=== PATIENT | female | born 1985 | race Caucasian/White ===

== ENCOUNTER 2016-07-29 13:00 | Emergency (ER) | payer OTHER ==
[2016-07-29 14:20] LABS: BASO % 0.3 % (0.0-1.0); EOS # 0.2 K/mm3 (0.0-0.50); EOS % 1.8 % (0.0-3.0); LARGE UNSTAINED CELL # 0.1 K/mm3 (0.0-0.4); LARGE UNSTAINED CELL % 1.5 % (0.0-4.0); LYMPH # 1.6 K/mm3 (1.5-6.5); LYMPH % 20.4 % (24.0-44.0); MEAN CORPUSCULAR HEMOGLOBIN 28.9 pg (27.0-33.0); MEAN CORPUSCULAR VOLUME 82.5 fl (80.0-96.0); MONO # 0.3 K/mm3 (0.0-0.8); MONO % 4.2 % (0.0-5.0); NEUTROPHILS # 5.7 K/mm3 (1.8-7.7); NEUTROPHILS % 71.8 % (36.0-66.0); PLATELET COUNT, AUTOMATED 258 k/mm3 (150-450); RED CELL DISTRIBUTION WIDTH 13.1 % (11.5-14.5); WHITE BLOOD COUNT 7.9 K/mm3 (4.0-10.0)
--- NOTE | 2016-07-29 14:46 | REP ---
First trimester obstetrical ultrasound for vaginal bleeding, emergency room request: Transabdominal, endovaginal and M-mode Doppler are performed. There is an intrauterine gestational sac with a pole. The heart rate is 171 beats per minute. The pole crown-rump length is 3.7 cm corresponding 10 weeks 4 days gestational age. The NAKUL is 2016. There is no subchorionic hematoma. The maternal adnexa and cul-de-sac are unremarkable. Signed by Tomás Hill MD 07/29/2016 02:37 P
[2016-07-29 14:49] LABS: ANION GAP 12 MEQ/L (8-16); BLOOD UREA NITROGEN 8 MG/DL (7-18); CALCIUM LEVEL 9.1 MG/DL (8.5-10.1); CARBON DIOXIDE LEVEL 24 MEQ/L (21-32); CHLORIDE LEVEL 104 MEQ/L (98-107); CREATININE FOR GFR 0.42 MG/DL (0.55-1.02); GLOMERULAR FILTRATION RATE > 60.0 (>60); GLUCOSE, FASTING 85 MG/DL (70-105); HCG, SERUM QUANTITATIVE 71041 MIU/ML; POTASSIUM SERUM 3.8 MEQ/L (3.5-5.1); SODIUM LEVEL 140 MEQ/L (136-145)
--- NOTE | 2016-07-29 15:21 | EDDOCDS ---
Physician Documentation [facility] Name: Muriel Manning Age: 30 yrs Sex: Female : 1985 Arrival Date: 07/29/2016 Time: 13:00 Bed I4 / M4 Private MD: Nadir Felton [facility] Disposition: 07/29/16 15:09 Discharged to Home/Self Care. Impression: Other abnormal uterine and vaginal bleeding - IN EARLY , 10 weeks gestation of - 10w4d ON U.S.. - Condition is Stable. - Discharge Instructions: First Trimester of . - Medication Reconciliation, Local Pharmacy Hours form. - Follow up: Emergency Department; When: As needed; Reason: Worsening of conditions. Follow up: Adal Santizo MD; When: Call to arrange an appointment; Reason: Wound/Symptom Recheck, Recheck today's complaints, Continuance of care, To establish care. - Problem is new. - Symptoms are unchanged. - Notes: PLEASE CALL DR[facility] TODAY OR MONDAY TO SCHEDULE AN APPOINTMENT FOR NEXT WEEK, FOR FOLLOW UP. LET THEM KNOW YOU WERE SEEN IN THE ER TODAY AND HAD A NORMAL ULTRASOUND SHOWING A 10 WEEK, 4 DAY OLD INTRAUTERINE . ANY WORSENING SYMPTOMS, PLEASE RETURN TO THE ER. Historical: - Allergies: no known allergies; - Home Meds: 1. Vitamin Oral tab once daily 2. metformin 500 mg Oral Tb24 1 tab once daily (Last dose: 07/29/2016 07:00) 3. Zoloft 50 mg Oral tab 1 tab once daily (Last dose: 07/28/2016 21:00) - PMHx: PCOS; Depression; miscarriages; - PSHx: breast reduction; - Social history: Smoking status: Patient states was never smoker of tobacco. Patient/guardian denies using alcohol, street drugs, No barriers to communication noted, The patient speaks fluent Malay, Speaks appropriately for age. - Family history: Not pertinent. - : The pt / caregiver states he / she is not on anticoagulants. Home medication list is obtained from the patient. - Exposure Risk Screening:: None identified. 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 8 in. (172.72 cm) (R); Pain 4/10; 13:02 Body Mass Index 32.69 (97.52 kg, 172.72 cm) gr2 MDM: 13:12 UCG by Nursing ordered. dt4 13:12 Urine Dip ordered. dt4 13:47 Set up pelvic ordered. dt4 13:47 Undress patient appropriately for examination ordered. dt4 13:47 IV Saline Lock ordered. dt4 13:48 GC & Chlamydia Amplification Ordered. EDMS 13:48 CBC with Diff Ordered. EDMS 13:48 Basic Metabolic Profile Ordered. EDMS 13:48 Hcg, Serum Quantitative Ordered. EDMS 13:48 Wet Prep Ordered. EDMS 13:48 Urine Culture Ordered. EDMS 13:48 US 1st trimester Ordered. EDMS 13:48 Type & Screen Ordered. EDMS 14:17 Financial registration complete. lg 14:28 TRANSVAGINAL US Ordered. EDMS 14:39 [facility] Payment Agreement was scanned into [employer] and attached to record. Point of Care Testing: Urine : 13:35 hCG Reading: Positive; Control Reading: Positive; jjr Urine Dip: 13:35 pH: 5; ; Specific [place]: 1.015; Ketones: Negative; Glucose: Negative; Protein: Trace; jjr Leukocytes: Trace; Nitrite: Negative ; Blood: Non Hemolyzed Trace; Bilirubin: Negative ; Urobilinogen: Normal Ranges: Signatures: Dispatcher [employer] EDMS Lor Bautista RN RN srm Ganter, LoriLee, Reg Reg lg Zaria Barrera RN RN ttb Tschudi, Diane, PA-C PA-C dt4 The chart was reviewed and I authenticate all verbal orders and agree with the evaluation and treatment provided.Attachments: 14:39 [facility] [place] [facility] [place] Agreement lg MTDD
--- NOTE | 2016-07-29 15:21 | EDDOCDS ---
Nurse's Notes [facility] Name: Muriel Manning Age: 30 yrs Sex: Female : 1985 Arrival Date: 07/29/2016 Time: 13:00 Bed I4 / M4 Private MD: Nadir Felton [facility] Diagnosis: Other abnormal uterine and vaginal bleeding-IN EARLY ;10 weeks gestation of -10w4d ON U.S. Presentation: 07/29 13:08 Presenting complaint: Patient states: "sharp pains in my ovaries" accompanied by lower ttb back pain x3 days. Vag bleeding today, intermittent. Risk factors: The patient reports no loss of conciousness prior to arrival. This patient has not had a hysterectomy. This patient has not begun menopause. Adult Sepsis Screening: The patient does not have new or worsening altered mentation. Patient's respiratory rate is less than 22. Systolic blood pressure is greater than 100. Patient has a qSOFA score of 0- Negative Sepsis Screen. Suicide/Homicide risk assessment- the patient denies having any suicidal and/or homicidal ideations and does not present with any other emotional, behavioral or mental health complaints. Status: The patient is a dependent. Transition of care: patient was not received from another setting of care. 13:08 Acuity: SHASTA Level 3 ttb 13:08 Method Of Arrival: Walkin/Carried/Asstd ttb Triage Assessment: 13:11 General: Appears in no apparent distress, well nourished, well groomed, Behavior is ttb anxious, appropriate for age, cooperative, pleasant. Pain: Location: lower back, lower abd. 2/10. HIV screening NA for this visit Offered previously. Neurological: Level of Consciousness is awake, alert. Respiratory: No deficits noted. Airway is patent. : Reports vaginal bleeding that is bright red. Derm: Skin is normal. INK BLENDER: 13:11 4, Full Term 1, Premature 0, 2, Living 1, LMP 05/19/2016, srm Verified, EDC 02/23/2017, Gestational age from LMP: 10 weeks 1 day Historical: - Allergies: no known allergies; - Home Meds: 1. Vitamin Oral tab once daily 2. metformin 500 mg Oral Tb24 1 tab once daily (Last dose: 07/29/2016 07:00) 3. Zoloft 50 mg Oral tab 1 tab once daily (Last dose: 07/28/2016 21:00) - PMHx: PCOS; Depression; miscarriages; - PSHx: breast reduction; - Social history: Smoking status: Patient states was never smoker of tobacco. Patient/guardian denies using alcohol, street drugs, No barriers to communication noted, The patient speaks fluent Dominican, Speaks appropriately for age. - Family history: Not pertinent. - : The pt / caregiver states he / she is not on anticoagulants. Home medication list is obtained from the patient. - Exposure Risk Screening:: None identified. Screenin:13 Screening information is obtained from the patient. Fall risk: No risks identified. srm Assistance ADL's: requires no assistance with activities of daily living. Abuse/DV Screen: The patient / caregiver reports he/she is: not in a situation that causes fear, pain or injury. Nutritional screening: No deficits noted. Advance Directives: There is no active DNR order. home support is adequate. Assessment: 14:13 General: Appears in no apparent distress, Behavior is appropriate for age, cooperative. srm : Reports. 14:13 : Reports vaginal bleeding that is. srm 15:19 Reassessment: Patient appears in no apparent distress at this time. Patient states srm feeling better. Patient states symptoms have improved. Pain: Pain currently is 1 out of 10 on a pain scale. Quality of pain is described as occasional cramping. Cardiovascular: No deficits noted. Respiratory: No deficits noted. GI: Reports occ cramping. Vital Signs: 13:02 BP 123 / 77; Pulse 92; Resp 18 S; Temp 98.2(O); Pulse Ox 100% on R/A; Weight 97.52 kg gr2 (R); Height 5 ft. 8 in. (172.72 cm) (R); Pain 4/10; 13:02 Body Mass Index 32.69 (97.52 kg, 172.72 cm) 2 Vitals: 13:02 Log In Time: July 29, 2016 at 13:02. gr2 ED Course: 13:01 Patient visited by Marisela Briceno. gr2 13:01 Patient moved to Waiting gr2 13:02 [facility] gr2 13:04 Patient visited by Marisela Briceno. gr2 13:04 Patient moved to Pre RCE gr2 13:09 Triage Initiated ttb 13:12 Patient visited by Zaria Barrera, FREDY. ttb 13:20 Patient moved to Triage 2 ttb 13:21 Jillian Garcia PA-C [facility]. dt4 13:21 Steph Julien MD is Attending Physician. dt4 13:21 Patient visited by Jillian Garcia PA-C. dt4 13:36 Patient visited by Lisandra Briceno RN. jjr 13:40 Patient moved to I4 / M4 ttb 13:59 Assist provider with pelvic exam: Set up pelvic tray. Specimens sent to lab. jlf 14:02 Patient visited by Albino Izquierdo PCA. jlf 14:02 Wet Prep Sent. jlf 14:02 GC & Chlamydia Amplification Sent. jlf 14:12 Patient moved to Ultrasound am17 14:12 The patient / caregiver is instructed regarding the plan of care and ED course. srm Accompanied by daughter, Patient has correct armband on for positive identification. Placed in gown. Bed in low position. Call light in reach. 14:12 Hcg, Serum Quantitative Sent. srm 14:12 Type & Screen Sent. srm 14:12 Basic Metabolic Profile Sent. srm 14:12 CBC with Diff Sent. srm 14:12 Urine Culture Sent. srm 14:12 Inserted saline lock: 20 gauge in left antecubital area and blood collected. srm 14:13 Patient visited by Lor Bautista RN. srm 14:27 Patient moved to I4 / M4 am17 14:39 Patient name changed from Muriel\\S\\\\S\\Manning\\S\\ to Muriel\\S\\Anila\\S\\Manning. EDMS 14:39 [facility] [place] was [place] into [employer] and attached to record. lg 14:42 Patient visited by Albino Izquierdo PCA. jlf 15:06 Patient visited by Jillian Garcia PA-C. dt4 15:07 Adal Santizo MD is Referral Physician. dt4 15:19 Discontinued lock intact, bleeding controlled, pressure dressing applied, No srm redness/swelling at site. 15:20 US 1st trimester Returned. EDMS Point of Care Testing: Urine : 13:35 hCG Reading: Positive; Control Reading: Positive; jjr Urine Dip: 13:35 pH: 5; ; Specific [place]: 1.015; Ketones: Negative; Glucose: Negative; Protein: Trace; jjr Leukocytes: Trace; Nitrite: Negative ; Blood: Non Hemolyzed Trace; Bilirubin: Negative ; Urobilinogen: Normal Ranges: Order Results: Lab Order: Wet Prep; SPEC'M 07/29/16 14:00 Test: WET PREP; Value: WET PREP RESULT; Status: F Test: WET PREP; Value: MANY EPITHELIAL CELLS PRESENT; Status: F Test: WET PREP; Value: MODERATE WBC; Status: F Test: WET PREP; Value: MANY LONG RODS PRESENT; Status: F Lab Order: CBC with Diff; SPEC'M 07/29/16 14:07 Test: WHITE BLOOD COUNT; Value: 7.9; Range: 4.0-10.0; Units: K/mm3; Status: F Test: RED BLOOD COUNT; Value: 4.57; Range: 4.00-5.40; Units: M/mm3; Status: F Test: HEMOGLOBIN; Value: 13.2; Range: 12.0-16.0; Units: g/dl; Status: F Test: HEMATOCRIT; Value: 37.7; Range: 36.0-47.0; Units: %; Status: F Test: MEAN CORPUSCULAR VOLUME; Value: 82.5; Range: 80.0-96.0; Units: fl; Status: F Test: MEAN CORPUSCULAR HEMOGLOBIN; Value: 28.9; Range: 27.0-33.0; Units: pg; Status: F Test: MEAN CORPUSCULAR HGB CONC; Value: 35.0; Range: 32.0-36.5; Units: g/dl; Status: F Test: RED CELL DISTRIBUTION WIDTH; Value: 13.1; Range: 11.5-14.5; Units: %; Status: F Test: PLATELET COUNT, AUTOMATED; Value: 258; Range: 150-450; Units: k/mm3; Status: F Test: NEUTROPHILS %; Value: 71.8; Range: 36.0-66.0; Abnormal: Above high normal; Units: %; Status: F Test: LYMPH %; Value: 20.4; Range: 24.0-44.0; Abnormal: Below low normal; Units: %; Status: F Test: MONO %; Value: 4.2; Range: 0.0-5.0; Units: %; Status: F Test: EOS %; Value: 1.8; Range: 0.0-3.0; Units: %; Status: F Test: BASO %; Value: 0.3; Range: 0.0-1.0; Units: %; Status: F Test: LARGE UNSTAINED CELL %; Value: 1.5; Range: 0.0-4.0; Units: %; Status: F Test: NEUTROPHILS #; Value: 5.7; Range: 1.8-7.7; Units: K/mm3; Status: F Test: LYMPH #; Value: 1.6; Range: 1.5-6.5; Units: K/mm3; Status: F Test: MONO #; Value: 0.3; Range: 0.0-0.8; Units: K/mm3; Status: F Test: EOS #; Value: 0.2; Range: 0.0-0.50; Units: K/mm3; Status: F Test: BASO #; Value: 0.0; Range: 0.0-0.2; Units: K/mm3; Status: F Test: LARGE UNSTAINED CELL #; Value: 0.1; Range: 0.0-0.4; Units: K/mm3; Status: F Lab Order: Basic Metabolic Profile; SPEC'M 07/29/16 14:07 Test: GLUCOSE, FASTING; Value: 85; Range: 70-105; Units: MG/DL; Status: F Test: BLOOD UREA NITROGEN; Value: 8; Range: 7-18; Units: MG/DL; Status: F Test: CREATININE FOR GFR; Value: 0.42; Range: 0.55-1.02; Abnormal: Below low normal; Units: MG/DL; Status: F Test: GLOMERULAR FILTRATION RATE; Value: > 60.0; Range: >60; Status: F Test: SODIUM LEVEL; Value: 140; Range: 136-145; Units: MEQ/L; Status: F Test: POTASSIUM SERUM; Value: 3.8; Range: 3.5-5.1; Units: MEQ/L; Status: F Test: CHLORIDE LEVEL; Value: 104; Range: 98-107; Units: MEQ/L; Status: F Test: CARBON DIOXIDE LEVEL; Value: 24; Range: 21-32; Units: MEQ/L; Status: F Test: ANION GAP; Value: 12; Range: 8-16; Units: MEQ/L; Status: F Test: CALCIUM LEVEL; Value: 9.1; Range: 8.5-10.1; Units: MG/DL; Status: F Test Note: ; Units are mL/min/1.73 m2 Chronic Kidney Disease Staging per NKF: Stage I & II GFR >=60 Normal to Mildly Decreased Stage III GFR 30-59 Moderately Decreased Stage IV GFR 15-29 Severely Decreased Stage V GFR <15 Very Little GFR Left ESRD GFR <15 on JAVA MANAGER Lab Order: Type & Screen; SPEC07/29/16 14:07 Test: BLOOD TYPE; Value: A POS; Status: F Test: AB SCREEN (INDIRECT DIALLO)VIS; Value: NEGATIVE; Status: F Lab Order: Hcg, Serum Quantitative; SPEC'07/29/16 14:07 Test: HCG, SERUM QUANTITATIVE; Value: 85119; Units: MIU/ML; Status: F Test Note: ; GESTATIONAL AGE APPROXIMATE HCG RANGE (MIU/ML) 0.2-1 WEEK 5-50 1-2 WEEKS 50-500 2-3 WEEKS 100-5,000 3-4 WEEKS 500-10,000 4-5 WEEKS 1,000-50,000 5-6 WEEKS 10,000-100,000 6-8 WEEKS 15,000-200,000 2-3 MONTHS 10,000-100,000 NON FEMALES LESS THAN 3.0 Patient samples may contain human heterophilic antibodies that could react with immunoassays to give falsely elevated or depressed results. This assay has been designed to minimize interference from heterophilic antibodies. Elevated hCG levels have also been associated with trophoblastic disease and nontrophoblastic neoplasms. The possibility of having these diseases should be considered before a diagnosis of is made. This test is not intended for use as a surrogate marker for aiding in the diagnosis or monitoring the treatment of cancer patients. Siemens [employer] methodology. Radiology Order: US 1st trimester Test: US 1st trimester REASON FOR EXAMINATION: pos preg, vag bleeding/pelvic pain; First trimester obstetrical ultrasound for vaginal bleeding, emergency room; request:; ; Transabdominal, endovaginal and M-mode Doppler are performed.; ; There is an intrauterine gestational sac with a pole.; ; The heart rate is 171 beats per minute.; ; The pole crown-rump length is 3.7 cm corresponding 10 weeks 4 days; gestational age. The NAKUL is 2016.; ; There is no subchorionic hematoma.; ; The maternal adnexa and cul-de-sac are unremarkable.; ; ; Signed by; Tomás Hill MD 07/29/2016 02:37 P; Outcome: 15:09 Discharge ordered by Provider. dt4 15:19 Discharge Assessment: Patient awake, alert and oriented x 3. No cognitive and/or srm functional deficits noted. Patient verbalized understanding of disposition instructions. patient administered narcotics - no. The following High Risk Discharge criteria are identified: None. Discharged to home ambulatory, with family. Condition: stable. Discharge instructions given to patient, Instructed on discharge instructions, follow up and referral plans. Demonstrated understanding of instructions, Pt was receptive of discharge instructions/ teaching. Ultrasound Study completed. Property sent home with patient. 15:20 Patient left the ED. srm Signatures: Dispatcher [employer] EDMS Lor Bautista RN RN Randy Woodward Reg Reg lg Raymond, Jessica, Zaria Galloway RN, RN RN ttb Marisela Briceno gr2 Albino Izquierdo, [employer] jlMuriel Martines am17 Jillian Garcia PA-C PALissettC dt4 Corrections: (The following items were deleted from the chart) 14:14 13:11 4, Full Term 1, Premature 0, 2, Living 1, LMP 05/19/2016 ttb srm MTDD
--- NOTE | 2016-07-31 16:21 | EDDOCDS ---
Nurse's Notes [facility] Name: Muriel Manning Age: 30 yrs Sex: Female : 1985 Arrival Date: 07/29/2016 Time: 13:00 Bed I4 / M4 Private MD: Nadir Felton [facility] Diagnosis: Other abnormal uterine and vaginal bleeding-IN EARLY ;10 weeks gestation of -10w4d ON U.S. Presentation: 07/29 13:08 Presenting complaint: Patient states: "sharp pains in my ovaries" accompanied by lower ttb back pain x3 days. Vag bleeding today, intermittent. Risk factors: The patient reports no loss of conciousness prior to arrival. This patient has not had a hysterectomy. This patient has not begun menopause. Adult Sepsis Screening: The patient does not have new or worsening altered mentation. Patient's respiratory rate is less than 22. Systolic blood pressure is greater than 100. Patient has a qSOFA score of 0- Negative Sepsis Screen. Suicide/Homicide risk assessment- the patient denies having any suicidal and/or homicidal ideations and does not present with any other emotional, behavioral or mental health complaints. Status: The patient is a dependent. Transition of care: patient was not received from another setting of care. 13:08 Acuity: SHASTA Level 3 ttb 13:08 Method Of Arrival: Walkin/Carried/Asstd ttb Triage Assessment: 13:11 General: Appears in no apparent distress, well nourished, well groomed, Behavior is ttb anxious, appropriate for age, cooperative, pleasant. Pain: Location: lower back, lower abd. 2/10. HIV screening NA for this visit Offered previously. Neurological: Level of Consciousness is awake, alert. Respiratory: No deficits noted. Airway is patent. : Reports vaginal bleeding that is bright red. Derm: Skin is normal. DENT REMOVER: 13:11 4, Full Term 1, Premature 0, 2, Living 1, LMP 05/19/2016, srm Verified, EDC 02/23/2017, Gestational age from LMP: 10 weeks 1 day Historical: - Allergies: no known allergies; - Home Meds: 1. Vitamin Oral tab once daily 2. metformin 500 mg Oral Tb24 1 tab once daily (Last dose: 07/29/2016 07:00) 3. Zoloft 50 mg Oral tab 1 tab once daily (Last dose: 07/28/2016 21:00) - PMHx: PCOS; Depression; miscarriages; - PSHx: breast reduction; - Social history: Smoking status: Patient states was never smoker of tobacco. Patient/guardian denies using alcohol, street drugs, No barriers to communication noted, The patient speaks fluent Peruvian, Speaks appropriately for age. - Family history: Not pertinent. - : The pt / caregiver states he / she is not on anticoagulants. Home medication list is obtained from the patient. - Exposure Risk Screening:: None identified. Screenin:13 Screening information is obtained from the patient. Fall risk: No risks identified. srm Assistance ADL's: requires no assistance with activities of daily living. Abuse/DV Screen: The patient / caregiver reports he/she is: not in a situation that causes fear, pain or injury. Nutritional screening: No deficits noted. Advance Directives: There is no active DNR order. home support is adequate. Assessment: 14:13 General: Appears in no apparent distress, Behavior is appropriate for age, cooperative. srm : Reports. 14:13 : Reports vaginal bleeding that is. srm 15:19 Reassessment: Patient appears in no apparent distress at this time. Patient states srm feeling better. Patient states symptoms have improved. Pain: Pain currently is 1 out of 10 on a pain scale. Quality of pain is described as occasional cramping. Cardiovascular: No deficits noted. Respiratory: No deficits noted. GI: Reports occ cramping. Vital Signs: 13:02 BP 123 / 77; Pulse 92; Resp 18 S; Temp 98.2(O); Pulse Ox 100% on R/A; Weight 97.52 kg gr2 (R); Height 5 ft. 8 in. (172.72 cm) (R); Pain 4/10; 13:02 Body Mass Index 32.69 (97.52 kg, 172.72 cm) 2 Vitals: 13:02 Log In Time: July 29, 2016 at 13:02. gr2 ED Course: 13:01 Patient visited by Marisela Briceno. gr2 13:01 Patient moved to Waiting gr2 13:02 [facility] gr2 13:04 Patient visited by Marisela Briceno. gr2 13:04 Patient moved to Pre RCE gr2 13:09 Triage Initiated ttb 13:12 Patient visited by Zaria Barrera, FREDY. ttb 13:20 Patient moved to Triage 2 ttb 13:21 [facility] dt4 13:21 Steph Julien MD is Attending Physician. dt4 13:21 Patient visited by Jillian Garcia PA-C. dt4 13:36 Patient visited by Lisandra Briceno, FREDY. jjr 13:40 Patient moved to I4 / M4 ttb 13:59 Assist provider with pelvic exam: Set up pelvic tray. Specimens sent to lab. jlf 14:02 Patient visited by Albino Izquierdo PCA. jlf 14:02 Wet Prep Sent. jlf 14:02 GC & Chlamydia Amplification Sent. jlf 14:12 Patient moved to Ultrasound am17 14:12 The patient / caregiver is instructed regarding the plan of care and ED course. srm Accompanied by daughter, Patient has correct armband on for positive identification. Placed in gown. Bed in low position. Call light in reach. 14:12 Hcg, Serum Quantitative Sent. srm 14:12 Type & Screen Sent. srm 14:12 Basic Metabolic Profile Sent. srm 14:12 CBC with Diff Sent. srm 14:12 Urine Culture Sent. srm 14:12 Inserted saline lock: 20 gauge in left antecubital area and blood collected. srm 14:13 Patient visited by Lor Bautista RN. srm 14:27 Patient moved to I4 / M4 am17 14:39 Patient name changed from Muriel\\S\\\\S\\Manning\\S\\ to Muriel\\S\\Anila\\S\\Manning. EDMS 14:39 [facility] Payment Agreement was scanned into [employer] and attached to record. lg 14:42 Patient visited by Albino Izquierdo PCA. jlf 15:06 Patient visited by Jillian Garcia PA-C. dt4 15:07 Adal Santizo MD is Referral Physician. dt4 15:19 Discontinued lock intact, bleeding controlled, pressure dressing applied, No srm redness/swelling at site. 15:20 US 1st trimester Returned. EDMS 07/30 10:02 T-Sheet-- Draft Copy was scanned into [employer] and attached to record. gb 10:02 Radiology Report was scanned into [employer] and attached to record. Point of Care Testing: Urine : 07/29 13:35 hCG Reading: Positive; Control Reading: Positive; jjr Urine Dip: 13:35 pH: 5; ; Specific [place]: 1.015; Ketones: Negative; Glucose: Negative; Protein: Trace; jjr Leukocytes: Trace; Nitrite: Negative ; Blood: Non Hemolyzed Trace; Bilirubin: Negative ; Urobilinogen: Normal Ranges: Order Results: Lab Order: Wet Prep; SPEC'M 07/29/16 14:00 Test: WET PREP; Value: WET PREP RESULT; Status: F Test: WET PREP; Value: MANY EPITHELIAL CELLS PRESENT; Status: F Test: WET PREP; Value: MODERATE WBC; Status: F Test: WET PREP; Value: MANY LONG RODS PRESENT; Status: F Lab Order: GC & Chlamydia Amplification; SPEC'M 07/29/16 14:00 Test: CHLAMYDIA DNA AMPLIFICATION; Value: NEGATIVE; Range: NEGATIVE; Status: F Test: GC DNA AMPLIFICATION; Value: NEGATIVE; Range: NEGATIVE; Status: F Lab Order: Urine Culture; SPEC'M 07/29/16 14:07 Test: URINE CULTURE; Value: <EXTERNAL COMMENT eCWMed> FULL REPORT IN LAB NOTES (eCW and Medent).; Status: F Test: URINE CULTURE; Value: URINE CULTURE RESULT NO GROWTH; Status: F Lab Order: CBC with Diff; SPEC'M 07/29/16 14:07 Test: WHITE BLOOD COUNT; Value: 7.9; Range: 4.0-10.0; Units: K/mm3; Status: F Test: RED BLOOD COUNT; Value: 4.57; Range: 4.00-5.40; Units: M/mm3; Status: F Test: HEMOGLOBIN; Value: 13.2; Range: 12.0-16.0; Units: g/dl; Status: F Test: HEMATOCRIT; Value: 37.7; Range: 36.0-47.0; Units: %; Status: F Test: MEAN CORPUSCULAR VOLUME; Value: 82.5; Range: 80.0-96.0; Units: fl; Status: F Test: MEAN CORPUSCULAR HEMOGLOBIN; Value: 28.9; Range: 27.0-33.0; Units: pg; Status: F Test: MEAN CORPUSCULAR HGB CONC; Value: 35.0; Range: 32.0-36.5; Units: g/dl; Status: F Test: RED CELL DISTRIBUTION WIDTH; Value: 13.1; Range: 11.5-14.5; Units: %; Status: F Test: PLATELET COUNT, AUTOMATED; Value: 258; Range: 150-450; Units: k/mm3; Status: F Test: NEUTROPHILS %; Value: 71.8; Range: 36.0-66.0; Abnormal: Above high normal; Units: %; Status: F Test: LYMPH %; Value: 20.4; Range: 24.0-44.0; Abnormal: Below low normal; Units: %; Status: F Test: MONO %; Value: 4.2; Range: 0.0-5.0; Units: %; Status: F Test: EOS %; Value: 1.8; Range: 0.0-3.0; Units: %; Status: F Test: BASO %; Value: 0.3; Range: 0.0-1.0; Units: %; Status: F Test: LARGE UNSTAINED CELL %; Value: 1.5; Range: 0.0-4.0; Units: %; Status: F Test: NEUTROPHILS #; Value: 5.7; Range: 1.8-7.7; Units: K/mm3; Status: F Test: LYMPH #; Value: 1.6; Range: 1.5-6.5; Units: K/mm3; Status: F Test: MONO #; Value: 0.3; Range: 0.0-0.8; Units: K/mm3; Status: F Test: EOS #; Value: 0.2; Range: 0.0-0.50; Units: K/mm3; Status: F Test: BASO #; Value: 0.0; Range: 0.0-0.2; Units: K/mm3; Status: F Test: LARGE UNSTAINED CELL #; Value: 0.1; Range: 0.0-0.4; Units: K/mm3; Status: F Lab Order: Basic Metabolic Profile; SPEC'M 07/29/16 14:07 Test: GLUCOSE, FASTING; Value: 85; Range: 70-105; Units: MG/DL; Status: F Test: BLOOD UREA NITROGEN; Value: 8; Range: 7-18; Units: MG/DL; Status: F Test: CREATININE FOR GFR; Value: 0.42; Range: 0.55-1.02; Abnormal: Below low normal; Units: MG/DL; Status: F Test: GLOMERULAR FILTRATION RATE; Value: > 60.0; Range: >60; Status: F Test: SODIUM LEVEL; Value: 140; Range: 136-145; Units: MEQ/L; Status: F Test: POTASSIUM SERUM; Value: 3.8; Range: 3.5-5.1; Units: MEQ/L; Status: F Test: CHLORIDE LEVEL; Value: 104; Range: 98-107; Units: MEQ/L; Status: F Test: CARBON DIOXIDE LEVEL; Value: 24; Range: 21-32; Units: MEQ/L; Status: F Test: ANION GAP; Value: 12; Range: 8-16; Units: MEQ/L; Status: F Test: CALCIUM LEVEL; Value: 9.1; Range: 8.5-10.1; Units: MG/DL; Status: F Test Note: ; Units are mL/min/1.73 m2 Chronic Kidney Disease Staging per NKF: Stage I & II GFR >=60 Normal to Mildly Decreased Stage III GFR 30-59 Moderately Decreased Stage IV GFR 15-29 Severely Decreased Stage V GFR <15 Very Little GFR Left ESRD GFR <15 on LACQUERER Lab Order: Type & Screen; SPEC'07/29/16 14:07 Test: BLOOD TYPE; Value: A POS; Status: F Test: AB SCREEN (INDIRECT DIALLO)VIS; Value: NEGATIVE; Status: F Lab Order: Hcg, Serum Quantitative; SPEC'M 07/29/16 14:07 Test: HCG, SERUM QUANTITATIVE; Value: 27565; Units: MIU/ML; Status: F Test Note: ; GESTATIONAL AGE APPROXIMATE HCG RANGE (MIU/ML) 0.2-1 WEEK 5-50 1-2 WEEKS 50-500 2-3 WEEKS 100-5,000 3-4 WEEKS 500-10,000 4-5 WEEKS 1,000-50,000 5-6 WEEKS 10,000-100,000 6-8 WEEKS 15,000-200,000 2-3 MONTHS 10,000-100,000 NON FEMALES LESS THAN 3.0 Patient samples may contain human heterophilic antibodies that could react with immunoassays to give falsely elevated or depressed results. This assay has been designed to minimize interference from heterophilic antibodies. Elevated hCG levels have also been associated with trophoblastic disease and nontrophoblastic neoplasms. The possibility of having these diseases should be considered before a diagnosis of is made. This test is not intended for use as a surrogate marker for aiding in the diagnosis or monitoring the treatment of cancer patients. [employer] methodology. Radiology Order: US 1st trimester Test: US 1st trimester REASON FOR EXAMINATION: pos preg, vag bleeding/pelvic pain; First trimester obstetrical ultrasound for vaginal bleeding, emergency room; request:; ; Transabdominal, endovaginal and M-mode Doppler are performed.; ; There is an intrauterine gestational sac with a pole.; ; The heart rate is 171 beats per minute.; ; The pole crown-rump length is 3.7 cm corresponding 10 weeks 4 days; gestational age. The NAKUL is 2016.; ; There is no subchorionic hematoma.; ; The maternal adnexa and cul-de-sac are unremarkable.; ; ; Signed by; Tomás Hill MD 07/29/2016 02:37 P; Outcome: 15:09 Discharge ordered by Provider. dt4 15:19 Discharge Assessment: Patient awake, alert and oriented x 3. No cognitive and/or srm functional deficits noted. Patient verbalized understanding of disposition instructions. patient administered narcotics - no. The following High Risk Discharge criteria are identified: None. Discharged to home ambulatory, with family. Condition: stable. Discharge instructions given to patient, Instructed on discharge instructions, follow up and referral plans. Demonstrated understanding of instructions, Pt was receptive of discharge instructions/ teaching. Ultrasound Study completed. Property sent home with patient. 15:20 Patient left the ED. srm Signatures: Dispatcher [employer] EDMS Lor Bautista, RN RN srm Shelley Caba, Reg Reg gb Randy Ram, Reg Reg lg Lisandra Briceno RN RN jjr Conner, Teresa, RN RN ttb Marisela Briceno gr2 Albino Izquierdo, JEWEL HOLE DRILLER JEWEL HOLE DRILLER jlf Muriel Boudreaux am17 Jillian Garcia, CRISTINO PABrigida dt4 Corrections: (The following items were deleted from the chart) 14:14 13:11 4, Full Term 1, Premature 0, 2, Living 1, LMP 05/19/2016 ttb srm Chart Complete MTDD
--- NOTE | 2016-07-31 16:21 | EDDOCDS ---
Physician Documentation [facility] Name: Muriel Manning Age: 30 yrs Sex: Female : 1985 Arrival Date: 07/29/2016 Time: 13:00 Bed I4 / M4 Private MD: Nadir Felton [facility] Disposition: 07/29/16 15:09 Discharged to Home/Self Care. Impression: Other abnormal uterine and vaginal bleeding - IN EARLY , 10 weeks gestation of - 10w4d ON U.S.. - Condition is Stable. - Discharge Instructions: First Trimester of . - Medication Reconciliation, Local Pharmacy Hours form. - Follow up: Emergency Department; When: As needed; Reason: Worsening of conditions. Follow up: Adal Santizo MD; When: Call to arrange an appointment; Reason: Wound/Symptom Recheck, Recheck today's complaints, Continuance of care, To establish care. - Problem is new. - Symptoms are unchanged. - Notes: PLEASE CALL DR. SANTIZO[facility] TODAY OR MONDAY TO SCHEDULE AN APPOINTMENT FOR NEXT WEEK, FOR FOLLOW UP. LET THEM KNOW YOU WERE SEEN IN THE ER TODAY AND HAD A NORMAL ULTRASOUND SHOWING A 10 WEEK, 4 DAY OLD INTRAUTERINE . ANY WORSENING SYMPTOMS, PLEASE RETURN TO THE ER. Historical: - Allergies: no known allergies; - Home Meds: 1. Vitamin Oral tab once daily 2. metformin 500 mg Oral Tb24 1 tab once daily (Last dose: 07/29/2016 07:00) 3. Zoloft 50 mg Oral tab 1 tab once daily (Last dose: 07/28/2016 21:00) - PMHx: PCOS; Depression; miscarriages; - PSHx: breast reduction; - Social history: Smoking status: Patient states was never smoker of tobacco. Patient/guardian denies using alcohol, street drugs, No barriers to communication noted, The patient speaks fluent Lithuanian, Speaks appropriately for age. - Family history: Not pertinent. - : The pt / caregiver states he / she is not on anticoagulants. Home medication list is obtained from the patient. - Exposure Risk Screening:: None identified. 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 8 in. (172.72 cm) (R); Pain 4/10; 13:02 Body Mass Index 32.69 (97.52 kg, 172.72 cm) gr2 MDM: 13:12 UCG by Nursing ordered. dt4 13:12 Urine Dip ordered. dt4 13:47 Set up pelvic ordered. dt4 13:47 Undress patient appropriately for examination ordered. dt4 13:47 IV Saline Lock ordered. dt4 13:48 GC & Chlamydia Amplification Ordered. EDMS 13:48 CBC with Diff Ordered. EDMS 13:48 Basic Metabolic Profile Ordered. EDMS 13:48 Hcg, Serum Quantitative Ordered. EDMS 13:48 Wet Prep Ordered. EDMS 13:48 Urine Culture Ordered. EDMS 13:48 US 1st trimester Ordered. EDMS 13:48 Type & Screen Ordered. EDMS 14:17 Financial registration complete. lg 14:28 TRANSVAGINAL US Ordered. EDMS 14:39 [facility] Payment Agreement was scanned into [employer] and attached to record. lg 07/30 10:02 T-Sheet-- Draft Copy was scanned into [employer] and attached to record. gb 10:02 Radiology Report was scanned into [employer] and attached to record. Point of Care Testing: Urine : 07/29 13:35 hCG Reading: Positive; Control Reading: Positive; jjr Urine Dip: 13:35 pH: 5; ; Specific [place]: 1.015; Ketones: Negative; Glucose: Negative; Protein: Trace; jjr Leukocytes: Trace; Nitrite: Negative ; Blood: Non Hemolyzed Trace; Bilirubin: Negative ; Urobilinogen: Normal Ranges: Signatures: Dispatcher [employer] EDLor Olson RN RN [facility] Shelley Caba, Reg Reg gb Randy Ram, Reg Reg lg Zaria Barrera RN RN ttb Tschudi, Diane, PA-C PA-C dt4 The chart was reviewed and I authenticate all verbal orders and agree with the evaluation and treatment provided.Attachments: 14:39 [facility] Payment Agreement lg 07/30 10:02 T-Sheet-- Draft Copy gb Chart Complete MTDD
--- NOTE | 2016-07-31 16:21 | EDDOCDS ---
Physician Documentation [facility] Name: Muriel Manning Age: 30 yrs Sex: Female : 1985 Arrival Date: 07/29/2016 Time: 13:00 Bed I4 / M4 Private MD: Nadir Felton [facility] Disposition: 07/29/16 15:09 Discharged to Home/Self Care. Impression: Other abnormal uterine and vaginal bleeding - IN EARLY , 10 weeks gestation of - 10w4d ON U.S.. - Condition is Stable. - Discharge Instructions: First Trimester of . - Medication Reconciliation, Local Pharmacy Hours form. - Follow up: Emergency Department; When: As needed; Reason: Worsening of conditions. Follow up: Adal Santizo MD; When: Call to arrange an appointment; Reason: Wound/Symptom Recheck, Recheck today's complaints, Continuance of care, To establish care. - Problem is new. - Symptoms are unchanged. - Notes: PLEASE CALL DR[facility] SANTIZO[facility] TODAY OR MONDAY TO SCHEDULE AN APPOINTMENT FOR NEXT WEEK, FOR FOLLOW UP. LET THEM KNOW YOU WERE SEEN IN THE ER TODAY AND HAD A NORMAL ULTRASOUND SHOWING A 10 WEEK, 4 DAY OLD INTRAUTERINE . ANY WORSENING SYMPTOMS, PLEASE RETURN TO THE ER. Historical: - Allergies: no known allergies; - Home Meds: 1. Vitamin Oral tab once daily 2. metformin 500 mg Oral Tb24 1 tab once daily (Last dose: 07/29/2016 07:00) 3. Zoloft 50 mg Oral tab 1 tab once daily (Last dose: 07/28/2016 21:00) - PMHx: PCOS; Depression; miscarriages; - PSHx: breast reduction; - Social history: Smoking status: Patient states was never smoker of tobacco. Patient/guardian denies using alcohol, street drugs, No barriers to communication noted, The patient speaks fluent Turkish, Speaks appropriately for age. - Family history: Not pertinent. - : The pt / caregiver states he / she is not on anticoagulants. Home medication list is obtained from the patient. - Exposure Risk Screening:: None identified. 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 8 in. (172.72 cm) (R); Pain 4/10; 13:02 Body Mass Index 32.69 (97.52 kg, 172.72 cm) gr2 MDM: 13:12 UCG by Nursing ordered. dt4 13:12 Urine Dip ordered. dt4 13:47 Set up pelvic ordered. dt4 13:47 Undress patient appropriately for examination ordered. dt4 13:47 IV Saline Lock ordered. dt4 13:48 GC & Chlamydia Amplification Ordered. EDMS 13:48 CBC with Diff Ordered. EDMS 13:48 Basic Metabolic Profile Ordered. EDMS 13:48 Hcg, Serum Quantitative Ordered. EDMS 13:48 Wet Prep Ordered. EDMS 13:48 Urine Culture Ordered. EDMS 13:48 US 1st trimester Ordered. EDMS 13:48 Type & Screen Ordered. EDMS 14:17 Financial registration complete. lg 14:28 TRANSVAGINAL US Ordered. EDMS 14:39 [facility] Payment Agreement was scanned into [employer] and attached to record. lg 07/30 10:02 T-Sheet-- Draft Copy was scanned into [employer] and attached to record. gb 10:02 Radiology Report was scanned into [employer] and attached to record. Point of Care Testing: Urine : 07/29 13:35 hCG Reading: Positive; Control Reading: Positive; jjr Urine Dip: 13:35 pH: 5; ; Specific [place]: 1.015; Ketones: Negative; Glucose: Negative; Protein: Trace; jjr Leukocytes: Trace; Nitrite: Negative ; Blood: Non Hemolyzed Trace; Bilirubin: Negative ; Urobilinogen: Normal Ranges: Signatures: Dispatcher [employer] EDLor Olson RN RN [facility] Shelley Caba, Reg Reg gb Randy Ram, Reg Reg lg Zaria Barrera RN RN ttb Tschudi, Diane, PA-C PA-C dt4 The chart was reviewed and I authenticate all verbal orders and agree with the evaluation and treatment provided.Attachments: 14:39 [facility] Payment Agreement lg 07/30 10:02 T-Sheet-- Draft Copy gb Chart Complete MTDD
== END 2016-07-29 15:20 | disposition home or self-care (01) ==
LOC: M ED 13:00
DX: O20.9 Hemorrhage in early pregnancy, unspecified (principal); O99.341 Other mental disorders complicating pregnancy, first trimester; F32.9 Major depressive disorder, single episode, unspecified; O99.281 Endocrine, nutritional and metabolic diseases complicating pregnancy, first trimester; E28.2 Polycystic ovarian syndrome; Z79.899 Other long term (current) drug therapy; Z3A.10 10 weeks gestation of pregnancy

== ENCOUNTER 2016-09-19 22:31 | Emergency (ER) | payer OTHER ==
[~2016-09-19] VITALS: Ht 172.7 cm; Wt 104.3 kg
[2016-09-19 22:32] VITALS: BP 137/80
[2016-09-19] MEDS ORDERED: TYLE500T78 PO (22:43)
[2016-09-19] MEDS ORDERED: PREV15CA11 PO (22:43)
[2016-09-19] MEDS ORDERED: ZOLO50TA PO (22:43)
== END 2016-09-20 02:53 | disposition left against medical advice (07) ==
LOC: M ED 23:22
DX: R10.9 Unspecified abdominal pain (principal); Z3A.18 18 weeks gestation of pregnancy; Z53.21 Procedure and treatment not carried out due to patient leaving prior to being seen by health care provider

== ENCOUNTER 2017-02-18 16:31 | Inpatient (IN) | payer OTHER ==
[2017-02-18] VITALS (12 sets, daily range): BP systolic 114–188; BP diastolic 60–87
[~2017-02-18] VITALS: Ht 172.7 cm; Wt 120.0 kg
[~2017-02-18 16:31] MED LIST: PREV15CA18 PO; TYLE500T78 PO; ZOLO50TA PO
[2017-02-18] MEDS ORDERED: LR 1,000 ML IV SCH ×2 (17:19)
[2017-02-18] MEDS ORDERED: OXYTOCIN DRIP 30 UNITS in APPROPRIATE DILUENT 1 EA IV SCH (17:30)
[2017-02-18 18:41] LABS: MEAN CORPUSCULAR HEMOGLOBIN 28.4 pg (27.0-33.0); MEAN CORPUSCULAR HGB CONC 34.3 g/dl (32.0-36.5); MEAN CORPUSCULAR VOLUME 82.9 fl (80.0-96.0); RED CELL DISTRIBUTION WIDTH 15.6 % (11.5-14.5); WHITE BLOOD COUNT 10.8 K/mm3 (4.0-10.0)
[2017-02-18] MEDS ORDERED: PROMETHAZINE INJ 25 MG/ML VIAL (J2550) IV ONE (20:15)
[2017-02-18] MEDS ORDERED: NALBUPHINE HCL 10 MG/ML AMP (J2300) IM ONE (20:15)
[2017-02-18] MEDS ORDERED: NALBUPHINE HCL 10 MG/ML AMP (J2300) IV ONE (20:15)
[2017-02-18] MEDS ORDERED: METHYLERGONOVINE MALEATE 0.2 MG TAB PO PRN (22:00)
[2017-02-18] MEDS ORDERED: DOCUSATE SODIUM 100 MG CAP PO PRN (22:00)
[2017-02-18] MEDS ORDERED: DIBUCAINE 1% OINTMENT 30GM TOP PRN (22:00)
[2017-02-18] MEDS ORDERED: MOM 30ML SUSPENSION UDC PO PRN (22:00)
[2017-02-18] MEDS ORDERED: miSOPROStol 200 MCG TAB (S0191) PR ONE (22:00)
[2017-02-18] MEDS ORDERED: ONDANSETRON 4MG/2ML VIAL (J2405) IV PRN (22:00)
[2017-02-18] MEDS ORDERED: PROMETHAZINE 25 MG TAB PO PRN (22:00)
[2017-02-18] MEDS ORDERED: MEASLES,MUMPS,RUBELLA VACCINE INJ (MMR-II) (90707) SC SCH (22:00)
[2017-02-18] MEDS ORDERED: RHOGAM 300 MCG (1500 IU) INJ (J2790) IM SCH (22:00)
[2017-02-19 00:25] VITALS: BP 140/86
[2017-02-19] MEDS: IBUPROFEN 800 MG TAB PO PRN ×2 (00:50→08:35)
[2017-02-19 01:25] VITALS: BP 120/64
[2017-02-19] MEDS: ACETAMINOPHEN 500 MG TAB PO PRN ×2 (01:44→15:00)
[2017-02-19 05:50] VITALS: BP 109/62
[2017-02-19] MEDS: PRENATAL VITAMINS CHEWABLE TABLET PO SCH (08:34)
[2017-02-19 18:00] VITALS: BP 122/72
[2017-02-19] MEDS ORDERED: INFLUENZA QUADRIVALENT PF VACCINE 0.5ML SYRINGE (90686) IM SCH (19:00)
[2017-02-20] MEDS: IBUPROFEN 800 MG TAB PO PRN (04:32)
[2017-02-20 06:16] VITALS: BP 127/79
[2017-02-20] MEDS: PRENATAL VITAMINS CHEWABLE TABLET PO SCH (07:34)
[2017-02-20] MEDS: ACETAMINOPHEN 500 MG TAB PO PRN (07:35)
[2017-02-20] MEDS ORDERED: PRENTAB31 PO (09:32)
[2017-02-20] MEDS ORDERED: COLA100C5 PO (09:32)
[2017-02-20] MEDS ORDERED: DIBU1OIN TOP (09:32)
[2017-02-20] MEDS ORDERED: MOTR200T44 PO (09:32)
== END 2017-02-20 10:30 | disposition home or self-care (01) | DRG 775 ==
LOC: M LDO 16:31 → M LDI 17:18 → M OBS 02-19 00:34
PROVIDERS: ADMIT Student in an Organized Health Care Education/Training Program; ATTEND Student in an Organized Health Care Education/Training Program
PROC: 10E0XZZ Delivery of Products of Conception, External Approach (ICD-10-PCS; principal; 2017-02-18)
DX: O42.02 Full-term premature rupture of membranes, onset of labor within 24 hours of rupture (principal); O99.214 Obesity complicating childbirth; Z3A.39 39 weeks gestation of pregnancy; E66.9 Obesity, unspecified; Z37.0 Single live birth; Z68.36 Body mass index [BMI] 36.0-36.9, adult

== ENCOUNTER → 2017-03-24 | Outpatient (REF) | payer OTHER ==
[~2017-03-24] MED LIST changes: +COLA100C5 PO; +DIBU1OIN TOP; +MOTR200T44 PO; +PRENTAB31 PO
== END ==
LOC: M SFHCLERA 13:59
PROVIDERS: ATTEND Physician Assistant
DX: J02.9 Acute pharyngitis, unspecified (principal)

== ENCOUNTER → 2020-06-08 | Outpatient (CLI) | payer SELFPAY | LOC: M LABSMTC 11:24 | PROVIDERS: ATTEND Pediatrics | DX: Z20.828 Contact with and (suspected) exposure to other viral communicable diseases (principal) ==

== ENCOUNTER → 2020-07-16 | Outpatient (CLI) | payer SELFPAY | LOC: M LABSMTC 10:29 | PROVIDERS: ATTEND Pediatrics | DX: Z20.822 Contact with and (suspected) exposure to COVID-19 (principal) ==

== ENCOUNTER 2021-06-28 14:03 | Emergency (ER) | payer OTHER ==
[~2021-06-28] VITALS: Ht 172.7 cm; Wt 104.5 kg
[~2021-06-28 14:03] MED LIST changes: -PREV15CA18 PO; +PREV15CA24 PO
[2021-06-28] MEDS ORDERED: AUGM875T28 PO (18:28)
[2021-06-28] MEDS ORDERED: PRED20TA PO (18:28)
[2021-06-28] MEDS ORDERED: PROV108A INH (18:28)
[2021-06-28 19:14] VITALS: BP 120/80
== END 2021-06-28 19:19 | disposition home or self-care (01) ==
LOC: M ED 14:03
DX: J32.9 Chronic sinusitis, unspecified (principal); U07.1 COVID-19; Z77.098 Contact with and (suspected) exposure to other hazardous, chiefly nonmedicinal, chemicals

== ENCOUNTER 2022-04-16 18:20 | Emergency (ER) | payer OTHER ==
[~2022-04-16] VITALS: Ht 172.7 cm; Wt 101.5 kg
[~2022-04-16 18:20] MED LIST changes: +ALBU6.7H6 INH; +AUGM875T28 PO; +PRED20TA PO
[2022-04-16] MEDS ORDERED: ACETAMINOPHEN TAB 650MG DOSE (2X325MG) PO ONE (19:05)
[2022-04-16] MEDS ORDERED: NS 1,000 ML IV ONE (19:05)
[2022-04-16 19:06] LABS: BASO % 0.1 % (0.0-1.0); EOS # 0.1 10^3/uL (0.0-0.5); EOS % 1.1 % (0.0-3.0); HEMATOCRIT 40.7 % (36.0-47.0); HEMOGLOBIN 14.1 g/dl (12.0-15.5); LYMPH # 0.4 10^3/uL (1.5-5.0); LYMPH % 4.7 % (24.0-44.0); MEAN CORPUSCULAR HEMOGLOBIN 28.6 pg (27.0-33.0); MEAN CORPUSCULAR HGB CONC 34.6 g/dl (32.0-36.5); MEAN CORPUSCULAR VOLUME 82.6 fl (80.0-96.0); MONO # 0.6 10^3/uL (0.0-0.8); MONO % 6.8 % (2.0-8.0); NEUTROPHILS # 7.1 10^3/uL (1.5-8.5); NEUTROPHILS % 86.7 % (36.0-66.0); PLATELET COUNT, AUTOMATED 195 10^3/uL (150-450); RED BLOOD COUNT 4.93 10^6/uL (4.00-5.40); WHITE BLOOD COUNT 8.1 10^3/uL (4.0-10.0)
[2022-04-16 19:49] LABS: ALBUMIN 3.4 GM/DL (3.2-5.2); ALT/SGPT 21 U/L (12-78); BILIRUBIN,DIRECT 0.1 MG/DL (0.0-0.2); BILIRUBIN,TOTAL 0.8 MG/DL (0.2-1.0); BLOOD UREA NITROGEN 10 MG/DL (7-18); CALCIUM LEVEL 8.4 MG/DL (8.5-10.1); CARBON DIOXIDE LEVEL 21 MEQ/L (21-32); CHLORIDE LEVEL 108 MEQ/L (98-107); CREATININE FOR GFR 0.55 MG/DL (0.55-1.30); GLOMERULAR FILTRATION RATE > 60.0 (>60); GLUCOSE, FASTING 121 MG/DL (70-100); LIPASE 115 U/L (73-393); POTASSIUM SERUM 3.9 MEQ/L (3.5-5.1); SODIUM LEVEL 139 MEQ/L (136-145); TOTAL PROTEIN 6.9 GM/DL (6.4-8.2)
[2022-04-16 20:39] VITALS: BP 124/77
== END 2022-04-16 20:42 | disposition home or self-care (01) ==
LOC: M ED 18:20
DX: R10.9 Unspecified abdominal pain (principal); R19.7 Diarrhea, unspecified; R51.9 Headache, unspecified; R11.2 Nausea with vomiting, unspecified; Z79.51 Long term (current) use of inhaled steroids; Z79.899 Other long term (current) drug therapy

== ENCOUNTER → 2022-05-28 | Outpatient (REF) | payer OTHER | LOC: M WUC 18:48 | PROVIDERS: ATTEND Physician Assistant | DX: J02.9 Acute pharyngitis, unspecified (principal) ==